=== PATIENT | female | born 1975 | race Caucasian/White ===

== ENCOUNTER 2018-02-17 00:54 | Emergency (ER) | payer OTHER ==
[2018-02-17 00:55] VITALS: BMI 29.6
[2018-02-17 00:57] VITALS: TEMP 98.5
[2018-02-17 01:16] LABS: HCG,QUALITATIVE URINE NEGATIVE (NEGATIVE)
[2018-02-17 01:19] LABS: SQUAMOUS EPITHIAL 6 /hpf (0-5); URINE BACTERIA RARE (<OCC); URINE BILIRUBIN NEGATIVE (NEGATIVE); URINE BLOOD 3+ (NEGATIVE); URINE COLOR Yellow (YELLOW); URINE GLUCOSE (UA) NORMAL (Normal); URINE LEUKOCYTE ESTERASE TRACE Leu/uL (Negative); URINE PROTEIN 1+ mg/dL (NEGATIVE)
[2018-02-17 01:33] LABS: URINE CLARITY Hazy (Clear)
--- NOTE | 2018-02-17 02:13 | C.PDOC ---
History Of Present Illness 42 year old female presents to the ER with a complaint of heavy vaginal bleeding and passing large clots after she came home from work. Patient states the bleeding is associated with moderate cramping abdominal pain and notes she changed 5 pads in 2 hours. Denies vomiting, dizziness, or weakness. Patient's LMP prior to this was abnormal as well, lasted only one day. Time Seen by Provider: 02/17/18 01:07 Chief Complaint (Nursing): Female Genitourinary History Per: Patient History/Exam Limitations: no limitations Onset/Duration Of Symptoms: Hrs Current Symptoms Are (Timing): Still Present Quality Of Discomfort: Cramping Associated Symptoms: denies: Vomiting, Other (Dizziness, Weakness) Recent travel outside of the [place]: No Abnormal Vaginal Bleeding: Yes Past Medical History Reviewed: Historical Data, Nursing Documentation, Vital Signs Vital Signs: Last Vital Signs Temp 98.5 F 02/17/18 00:56 Pulse 78 02/17/18 00:56 Resp 18 02/17/18 00:56 BP 115/71 02/17/18 00:56 Pulse Ox 99 02/17/18 00:56 - Medical History PMH: Kidney Stones Family History: States: Unknown Family Hx - Social History Hx Tobacco Use: No Hx Alcohol Use: No Hx Substance Use: No - Immunization History Hx Tetanus Toxoid Vaccination: No Hx Influenza Vaccination: No Hx Pneumococcal Vaccination: No Review Of Systems Constitutional: Negative for: Weakness Respiratory: Negative for: Cough Gastrointestinal: Positive for: Abdominal Pain (Cramping). Negative for: Vomiting Genitourinary: Positive for: Vaginal Bleeding. Negative for: Dysuria Neurological: Negative for: Dizziness Physical Exam - Physical Exam Appears: Non-toxic Skin: Normal Color, Warm, Dry, No Pale Head: Atraumatic, Normacephalic Eye(s): bilateral: Normal Inspection Oral Mucosa: Moist Gastrointestinal/Abdominal: Soft, No Tenderness Pelvic: No Cervical Motion Tenderness, No Adnexal Tenderness, Other (Minimal blood in vault, os closed) Neurological/Psych: Oriented x3, Normal Speech ED Course And Treatment O2 Sat by Pulse Oximetry: 99 (Room air) Pulse Ox Interpretation: Normal Progress Note: UA and UCG WNL. Patient is resting comfortably in the ER in no acute distress, with minimal vaginal bleeding. Vitals are stable, patient reassured, will discharge home with instructions to follow up with OB. 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 - Scribe Statement The provider has reviewed the documentation as recorded by the Scribadenike Link All medical record entries made by the Lakeishaibadenike were at my direction and personally dictated by me. I have reviewed the chart and agree that the record accurately reflects my personal performance of the history, physical exam, medical decision making, and the department course for this patient. I have also personally directed, reviewed, and agree with the discharge instructions and disposition.
[2018-02-17 02:24] VITALS: BP 114/74; PULSE 72
[2018-02-17 02:40] VITALS: RESP 18
[2018-02-17 03:36] VITALS: O2SAT 99
== END 2018-02-17 02:24 | disposition home or self-care (01) ==
LOC: C.ER 00:54
DX: N92.0 Excessive and frequent menstruation with regular cycle (principal)

== ENCOUNTER 2018-04-03 11:47 | Emergency (ER) | payer OTHER ==
[2018-04-03 11:54] VITALS: BMI 21.2
[2018-04-03 11:55] VITALS: RESP 18; O2SAT 100
[2018-04-03] MEDS ORDERED: Sodium Chloride 0.9% 1,000 ML IV ONE (12:11)
[2018-04-03] MEDS ORDERED: Sodium Chloride 0.9% 1,000 ML ONE (12:23)
--- NOTE | 2018-04-03 12:33 | C.PDOC ---
History Of Present Illness 42 y/o female pt with hx of kidney stones presents to the ER c/o right flank pain for x5 days. Associated sx includes "dark urine" that she associates with no drinking a lot of water. Pt denies dysuria, vaginal bleeding, vaginal disc harge, dizziness, fever, chills, nausea and vomiting. Time Seen by Provider: 04/03/18 11:55 Chief Complaint (Nursing): Back Pain History Per: Patient History/Exam Limitations: no limitations Onset/Duration Of Symptoms: Days (x5) Current Symptoms Are (Timing): Still Present Past Medical History Reviewed: Historical Data, Nursing Documentation, Vital Signs Vital Signs: Last Vital Signs Temp 98.1 F 04/03/18 11:52 Pulse 80 04/03/18 11:52 Resp 18 04/03/18 11:52 BP 120/73 04/03/18 11:52 Pulse Ox 100 04/03/18 11:52 - Medical History PMH: Kidney Stones, Chronic Kidney Disease Family History: States: Unknown Family Hx - Social History Hx Tobacco Use: No Hx Alcohol Use: No Hx Substance Use: No - Immunization History Hx Tetanus Toxoid Vaccination: No Hx Influenza Vaccination: Yes Hx Pneumococcal Vaccination: No Review Of Systems Constitutional: Negative for: Fever, Chills Eyes: Negative for: Pain ENT: Negative for: Ear Pain Cardiovascular: Negative for: Chest Pain Respiratory: Negative for: Cough Gastrointestinal: Positive for: Abdominal Pain (right flank pain ). Negative for: Nausea, Vomiting Genitourinary: Positive for: Hematuria. Negative for: Dysuria, Vaginal Discharge, Vaginal Bleeding Skin: Negative for: Rash Neurological: Negative for: Dizziness Psych: Negative for: Anxiety Physical Exam - Physical Exam Appears: Well, Non-toxic, No Acute Distress Skin: Warm, Dry, No Rash Head: Normacephalic Eye(s): bilateral: Normal Inspection Oral Mucosa: Moist Throat: Normal Neck: Normal ROM, Supple Cardiovascular: Rhythm Regular Respiratory: Normal Breath Sounds Gastrointestinal/Abdominal: Soft, No Tenderness Back: No CVA Tenderness, No Vertebral Tenderness, No Paraspinal Tenderness Extremity: Normal ROM (x4) Neurological/Psych: Oriented x3, Normal Speech Gait: Steady ED Course And Treatment - Laboratory Results Result Diagrams: 04/03/18 12:34 04/03/18 12:34 O2 Sat by Pulse Oximetry: 100 (RA) Pulse Ox Interpretation: Normal - CT Scan/US CT Abdomen/Pelvis Other Rad Studies (CT/US): Read By Radiologist, Radiology Report Reviewed CT/US Interpretation: Accession No. : [id number]. Patient Name / ID : MARIVEL HUTCHINS / [id number]. Exam Date : 04/03/2018 12:56:30 ( Approved ). Study Comment : Sex / Age : F / 42Y. Creator : Jeaneth Suresh. Dictator : Tamra Mccormick MD. Principal Mechanical Engineer : Ax Survey Worker : Tamra Mccormick MD. Approver2 : Report Date : 04/03/2018 13:15:06. My Comment : . PROCEDURE: CT Abdomen and Pelvis without Oral or IV contrast. HISTORY: R flank pain, hx kidney stones. COMPARISON: None available. TECHNIQUE: Contiguous axial images of the abdomen and pelvis. No oral or IV contrast ad ministered. Coronal and Sagittal reformats generated and reviewed. Radiation dose: Total exam DLP = 293.29 mGy-cm. This CT exam was performed using one or more of the following dose reduction techniques: Automated exposure control, adjustment of the mA and/or kV according to patient size, and/or use of iterative reconstruction technique. FINDINGS: There is limited evaluation of the solid organs without the administration of IV contrast. Examination limited by paucity of intra-abdominal/pelvic fat as well as patient motion. LOWER THORAX: No visible consolidation, pleural effusion, or pneumothorax. Bilateral breast prosthesis. LIVER: Unremarkable unenhanced appearance. GALLBLADDER AND BILE DUCTS: Not adequately seen. PANCREAS: Limited visualization. Question mild pancreatic edema. SPLEEN: Unremarkable unenhanced appearance. ADRENALS: Unremarkable unenhanced appearance. KIDNEYS AND URETERS: No hydronephrosis or obstructing renal calculus. BLADDER: Under distended urinary bladder limits evaluation. REPRODUCTIVE: Lobulated enlarged and heterogeneous uterus presum ably a due to fibroids. APPENDIX: The appendix is not identified. No secondary signs of acute appendicitis. BOWEL: The stomach is nondistended. Lack of oral contrast limits evaluation for bowel pathology. The bowel loops appear within normal limits of caliber without evidence of intestinal o bstruction. Moderate to severe diffuse constipation. PERITONEUM: No significant free fluid. No definite free air. LYMPH NODES: No bulky lymphadenopathy identified. VASCULATURE: No atherosclerotic calcifications of the aorta evident. No aortic aneurysm. BONES: No acute osseous abnormality is detected. OTHER FINDINGS: None. IMPRESSION: Limited study as above. The gallbladder is not adequately seen. Question mild pancreatic edema. Correlate with amylase and lipase. Moderate to severe diffuse constipation. Additional findings as above. Medical Decision Making Medical Decision Making: Plans: -- chem labs -- blood work -- CT abd and pelvis -- Ibuprofen -- IV fluids Labs grossly normal. CT as above. On reevaluation she reports that she feels better. Patient has no complaint of dysuria. UA shows 7wbc but many squamous cells so more likely contaminant. She was given Mg citrate before discharge due to constipation. Spoke to patient and she reiterated that she has no dysuria and agrees to wait for UCx. She was given copy of abnormal CT to follow-up. Disposition - Disposition Disposition: HOME/ ROUTINE Disposition Time: 14:20 Condition: GOOD Additional Instructions: Follow-up with PMD within 2 days. Return to ED if condition worsens. Follow-up for abnormal CT. Return to ED if condition worsens. Increase fiber in diet. Instructions: Constipation in Adults Forms: [facility] (Norwegian) - Clinical Impression Clinical Impression: Fibroids, Constipation, Pancreatic abnormality - Scribe Statement The provider has reviewed the documentation as recorded by the Nathan Mckeon Do Provider Attestation: All medical record entries made by the Lakeishaibadenike were at my direction and personally dictated by me. I have reviewed the chart and agree that the record accurately reflects my personal performance of the history, physical exam, me dical decision making, and the department course for this patient. I have also personally directed, reviewed, and agree with the discharge instructions and disposition.
[2018-04-03 12:37] LABS: HCG,QUALITATIVE URINE NEGATIVE (NEGATIVE)
[2018-04-03 12:41] LABS: BASO # 0.1 K/uL (0.0-0.2); BASO % 1.1 % (0.0-2.0); EOS # 0.3 K/uL (0.0-0.7); EOS % 2.9 % (0.0-4.0); HEMOGLOBIN 12.1 g/dL (11.0-16.0); LYMPH # 1.2 K/uL (1.0-4.3); LYMPH % 13.1 % (20.0-40.0); MEAN CELL VOLUME 84.1 fL (81.0-99.0); MEAN CORPUSCULAR HEMOGLOBIN 27.7 pg (27.0-31.0); MEAN CORPUSCULAR HGB CONC 32.9 g/dL (33.0-37.0); MEAN PLATELET VOLUME 10.4 fL (7.2-11.7); MONO # 0.6 K/uL (0.0-0.8); MONO % 6.4 % (0.0-10.0); NEUT # 7.1 K/uL (1.8-7.0); NEUT % 76.5 % (50.0-75.0); NRBC % 0.1 % (0.0-2.0); RBC 4.38 Mil/uL (3.80-5.20); WHITE BLOOD COUNT 9.2 K/uL (4.8-10.8)
[2018-04-03 12:42] LABS: SQUAMOUS EPITHIAL 22 /hpf (0-5); URINE BACTERIA RARE (<OCC)
[2018-04-03 12:44] LABS: PH,URINE 5.5 (5.0-8.0); URINE BILIRUBIN NEGATIVE (NEGATIVE); URINE BLOOD LARGE (NEGATIVE); URINE CLARITY Hazy (Clear); URINE COLOR YELLOW (YELLOW); URINE GLUCOSE (UA) NEGATIVE (Normal); URINE PROTEIN TRACE mg/dL (NEGATIVE)
[2018-04-03 12:45] LABS: URINE LEUKOCYTE ESTERASE NEGATIVE Leu/uL (Negative); URINE UROBILINOGEN 0.2 mg/dL (0.2-1.0)
[2018-04-03 12:56] LABS: ALB/GLOB RATIO 1.5 (1.0-2.1); ALBUMIN 4.8 g/dL (3.5-5.0); ALT/SGPT 6 U/L (9-52); AST/SGOT 22 U/L (14-36); BLOOD UREA NITROGEN 15 mg/dL (7-17); CALCIUM 9.5 mg/dl (8.6-10.4); GFR NON-AFRICAN AMERICAN > 60; LIPASE 68 U/L (23-300)
--- NOTE | 2018-04-03 13:34 | CT ---
PROCEDURE: CT Abdomen and Pelvis without Oral or IV contrast. HISTORY: R flank pain, hx kidney stones COMPARISON: None available. TECHNIQUE: Contiguous axial images of the abdomen and pelvis. No oral or IV contrast administered. Coronal and Sagittal reformats generated and reviewed. Radiation dose: Total exam DLP = 293.29 mGy-cm. This CT exam was performed using one or more of the following dose reduction techniques: Automated exposure control, adjustment of the mA and/or kV according to patient size, and/or use of iterative reconstruction technique. FINDINGS: There is limited evaluation of the solid organs without the administration of IV contrast. Examination limited by paucity of intra-abdominal/pelvic fat as well as patient motion. LOWER THORAX: No visible consolidation, pleural effusion, or pneumothorax. Bilateral breast prosthesis. LIVER: Unremarkable unenhanced appearance. GALLBLADDER AND BILE DUCTS: Not adequately seen. PANCREAS: Limited visualization. Question mild pancreatic edema. SPLEEN: Unremarkable unenhanced appearance. ADRENALS: Unremarkable unenhanced appearance. KIDNEYS AND URETERS: No hydronephrosis or obstructing renal calculus. BLADDER: Under distended urinary bladder limits evaluation. REPRODUCTIVE: Lobulated enlarged and heterogeneous uterus presumably a due to fibroids. APPENDIX: The appendix is not identified. No secondary signs of acute appendicitis. BOWEL: The stomach is nondistended. Lack of oral contrast limits evaluation for bowel pathology. The bowel loops appear within normal limits of caliber without evidence of intestinal obstruction. Moderate to severe diffuse constipation. PERITONEUM: No significant free fluid. No definite free air. LYMPH NODES: No bulky lymphadenopathy identified. VASCULATURE: No atherosclerotic calcifications of the aorta evident. No aortic aneurysm. BONES: No acute osseous abnormality is detected. OTHER FINDINGS: None. IMPRESSION: Limited study as above. The gallbladder is not adequately seen. Question mild pancreatic edema. Correlate with amylase and lipase. Moderate to severe diffuse constipation. Additional findings as above.
[2018-04-03] MEDS ORDERED: Magnesium Citrate Oral SOL (300 ml) PO STA (14:21)
[2018-04-03] MEDS ORDERED: Magnesium Citrate Oral SOL (300 ml) ONE (14:36)
[2018-04-03 14:37] VITALS: BP 112/74; PULSE 74; TEMP 98.2
== END 2018-04-03 14:57 | disposition home or self-care (01) ==
LOC: C.ER 11:47
DX: K59.00 Constipation, unspecified (principal); D25.9 Leiomyoma of uterus, unspecified; K86.89 Other specified diseases of pancreas
CPT/HCPCS: 74176; 80053; 81001; 83690; 84703; 85025; 87086; 96360; 99285; J7030